=== PATIENT | female | born 1995 | race Hispanic/Latino ===

== ENCOUNTER 2022-06-11 16:02 | Emergency (ER) | payer SELFPAY ==
[2022-06-11 16:05] VITALS: BP 132/93; PULSE 106; RESP 30; TEMP 36.5; O2SAT 100; BMI 31.4
--- NOTE | 2022-06-11 16:13 | EKG12_ITS ---
Test Reason : SYNCOPE Blood Pressure : / mmHG Vent. Rate : 098 BPM Atrial Rate : 098 BPM P-R Int : 114 ms QRS Dur : 082 ms QT Int : 338 ms P-R-T Axes : 053 079 058 degrees QTc Int : 431 ms Normal sinus rhythm Normal ECG Confirmed by JACINTO ALVAREZ, STEVE ([id number]), television news video editor NANDO COTTO ([id number]) on 06/15/2022 9:32:39 AM Referred By: Confirmed By:HERI CASEY MD
--- NOTE | 2022-06-11 16:13 | EX.ED.DYSGE1 ---
HPI <SARAHI Messer - Last Filed: 06/11/22 18:17> History of Present Illness Chief Complaint: Syncope Narrative Narrative: 26-year-old female with history of sickle cell disease, presents to the emergency department after a syncopal episode while at work. Patient was standing at [employer], states that she felt dizzy like she might pass out, she told her friend who actually caught her. Patient did not strike the ground. Patient then was brought in by EMS. On arrival, patient was breathing 35-40 times a minute, patient was shaking and saying that she cannot feel her body. She denies any chest pain. Denies any fevers or chills. Denies any history of blood clots in her legs or lungs. Patient's last menstrual cycle was 1 week ago. Denies any hormonal use. PFSH <SARAHI Messer - Last Filed: 06/11/22 18:17> [facility] Medical History (Updated 06/11/22 @ 17:[address] Allen Cox MD) Sickle cell anemia Home Medications albuterol sulfate 90 mcg/actuation aerosol inhaler (Ventolin HFA) 1 puff inhalation Q4H PRN PRN Wheezing 03/04/14 [History Last Taken 1 Month Ago ~08/30/16] vits,calcium no.78-iron fumarate-folic acid 29 mg-1 mg tablet (Prenatabs FA) 1 tab PO DAILY 06/13/16 [History Last Taken 09/23/16 20:00 1 tab] ferrous gluconate 324 mg (37.5 mg iron) tablet 325 mg PO BIDCM ##60 10/01/16 [Rx Last Taken Unknown] ibuprofen 400 mg tablet 400 mg PO Q4H PRN PRN pain or cramping ##40 10/01/16 [Rx Last Taken Unknown] Allergy/AdvReac Type Severity Reaction Status Date / Time No Known Allergies Allergy Verified 06/11/22 16:09 Social History Smoking Status: Never smoker ROS <SARAHI Messer - Last Filed: 06/11/22 18:17> ROS ED ROS Narrative Constitutional: Negative for fever, chills, weight loss, weakness Eyes: Negative for vision loss, vision change, double vision ENT: Negative for any sore throat, ear pain, congestion Cardiovascular: Negative for any chest pain, tightness, palpitations Respiratory: Negative for any cough, sputum production, hemoptysis, dyspnea, dyspnea on exertion, orthopnea Gastrointestinal: Negative for any abdominal pain, nausea, vomiting, diarrhea, constipation, blood in stool, blood in vomit : Negative for any urinary frequency, dysuria, retention, blood in urine Muscle skeletal: Negative for any muscle joint pain, stiffness, myalgias, arthralgias, neck pain, back pain Neurological: Negative for any headache, numbness or tingling, dizziness. Positive for syncope Skin: Negative for any rashes, lumps, itching, abrasions, lacerations Psychiatric: Negative for any depression, stress, suicidal ideation, homicidal ideation. Positive for anxiety Hematologic: Negative for any easy bruising, excessive bruising, easy bleeding Allergies: Negative for any eczema, hives, rash EXAM <SARAHI Messer - Last Filed: 06/11/22 18:17> Physical Exam Narrative Exam Narrative: Vital signs reviewed. Patient is alert and orient x4, patient is tachypneic, hyperventilating, it was difficult to get her to slow her breathing down. When patient talks he is able speak in complete senses. HEET: Head normocephalic atraumatic, TMs clear bilaterally. Posterior pharynx is clear, dry mucous membranes. Nares clear bilaterally. Neck: Supple with no lymphadenopathy or tenderness. No signs of meningismus, negative jolt sign. Cardiac: Regular rate and rhythm no murmurs gallops or rubs, equal peripheral pulses bilaterally. Respiratory: Lungs clear to auscultation bilaterally. Tachypneic, hyperventilation no chest tenderness. Abdomen: Soft, nontender, nondistended. No abdominal bruit or pulsatile masses. No hepatosplenomegaly Extremities: No peripheral edema, no signs of gross trauma or deformity. Active full range of motion of all extremities. Neuro: Cranial nerves II through XII intact, no focal neurological deficits. NIH score 0 Skin: Clean dry and intact with no rash, purpura, petechiae, vesicles or pustules. Backs/flank: No CVA tenderness, no midline spinal tenderness, no deformity. Psych: Normal mood and affect. No SI, HI or acute psychosis. Const Vital Signs: 06/11/22 16:05 06/11/22 18:15 Temperature 97.7 F L Temperature Source Oral Pulse Rate 106 H Respiratory Rate 30 H Respiratory Pattern Tachypnea Blood Pressure 132/93 H Blood Pressure Mean 106 Pulse Ox 100 Oxygen Delivery Method Room Air <Dr. Allen Cox MD - Last Filed: 06/11/22 18:20> Physical Exam Const Vital Signs: 06/11/22 16:05 06/11/22 18:15 Temperature 97.7 F L Temperature Source Oral Pulse Rate 106 H Respiratory Rate 30 H Respiratory Pattern Tachypnea Blood Pressure 132/93 H Blood Pressure Mean 106 Pulse Ox 100 Oxygen Delivery Method Room Air MDM <SARAHI Messer - Last Filed: 06/11/22 18:17> [facility] Lab Data Attestation: I reviewed the patient's lab results. Labs: Laboratory Results - last 24 hr 06/11/22 06/11/22 16:20 16:20 WBC 6.8 RBC 4.46 Hgb 13.0 Hct 37.3 MCV 83.6 MCH 29.1 MCHC 34.9 RDW Std Deviation 37.6 RDW Coeff of Nancy 12.4 Plt Count 300 MPV 10.1 Immature Gran % (Auto) 0.300 Neut % (Auto) 61.9 Lymph % (Auto) 29.6 Wolfe % (Auto) 6.9 Eos % (Auto) 0.9 Baso % (Auto) 0.4 Absolute Neuts (auto) 4.2 Absolute Lymphs (auto) 2.02 Nucleated RBC % 0 Sodium 138 Potassium 3.5 Chloride 107 Carbon Dioxide 22.0 Anion Gap 9 BUN 8 Creatinine 0.85 Estim Creat Clear Calc 75.68 Est GFR (MDRD) Af Amer 103 Est GFR (MDRD) Non-Af 85 BUN/Creatinine Ratio 9.4 L Glucose 103 Calcium 9.9 EKG Normal sinus rhythm: Comments: Normal sinus rhythm, rate of 98 bpm MN interval 114 MS, QRS duration 82 ms, no acute ST elevation, no acute infarct noted Treatment and Re-Evaluation Narrative: Patient appears well, patient appears nontoxic, vital signs are stable. Patient presents to the emergency department for syncopal episode while standing at work. Patient arrives to the emergency department in a anxiety attack with hyperventilation. Patient did receive some basic laboratory values, they were grossly unremarkable, EKG was unremarkable. Patient was able to calm down, she was given 0.5 mg of IV Ativan. She was given IV fluids 1 L. On reassessment, the patient was much more calm, she was able to ambulate to the bathroom with no difficulty, patient would like to be discharged. At this time, believe the patient had a vasovagal syncope from standing at work, EKG shows no evidence of ischemia, patient appears nontoxic. I do believe that the patient was hyperventilating which caused her body to feel numb and increased her anxiety. Patient is stable for discharge instructed return for any worsening symptoms. <Dr. Allen Cox MD - Last Filed: 06/11/22 18:20> [facility] MDM Narrative Medical decision making narrative: I have personally performed a face to face assessment of the patient and have reviewed the BRENNAN Note. I performed a substantive portion of the visit including all aspects of the following. My oh findings include: History is remarkable for sickle cell. She was standing. She states she felt nauseous and vision became tunnel and then black. There was no mention of seizure disorder. She was no incontinence of urine or stool. Presently she complains of total body numbness. She appears anxious. She denies feeling anxious. Exam is HEENT exam is remarkable for positive's Chvostek sign. Patient also has a positive Trousseau sign. Heart is rapid and regular. Patient is tachypneic. Lungs are clear to auscultation. Patient has good palpable distal pulses. Neuro exam is nonfocal. Medical Decision Making patient is clinically hyperventilating. EKG was obtained which reveals no ischemic changes or changes to suggest WPW. Patient was treated with Ativan for her anxiety and nonrebreather because she is hyperventilating. Blood work was obtained to assess for electrolyte abnormality. Other additions or changes: Clinically patient had a syncopal spell most likely vasovagal with hyperventilation syndrome. Lab Data Attestation: I reviewed the patient's lab results. Lab results narrative: CBC is unremarkable. Basic metabolic panel is unremarkable. Labs: Laboratory Results - last 24 hr 06/11/22 06/11/22 16:20 16:20 WBC 6.8 RBC 4.46 Hgb 13.0 Hct 37.3 MCV 83.6 MCH 29.1 MCHC 34.9 RDW Std Deviation 37.6 RDW Coeff of Nancy 12.4 Plt Count 300 MPV 10.1 Immature Gran % (Auto) 0.300 Neut % (Auto) 61.9 Lymph % (Auto) 29.6 Wolfe % (Auto) 6.9 Eos % (Auto) 0.9 Baso % (Auto) 0.4 Absolute Neuts (auto) 4.2 Absolute Lymphs (auto) 2.02 Nucleated RBC % 0 Sodium 138 Potassium 3.5 Chloride 107 Carbon Dioxide 22.0 Anion Gap 9 BUN 8 Creatinine 0.85 Estim Creat Clear Calc 75.68 Est GFR (MDRD) Af Amer 103 Est GFR (MDRD) Non-Af 85 BUN/Creatinine Ratio 9.4 L Glucose 103 Calcium 9.9 Discharge Plan Triage Chief Complaint: Syncope ED Midlevel Provider: Edward Agosto ED Provider: Allen Cox Dx/Rx/DC Orders Clinical Impression: Syncope and collapse, Acute hyperventilation syndrome Instructions: Causes of Syncope, Dizziness Fainting Causes, ED Hyperventilation Syndrome Prescriptions: No Action albuterol sulfate [Ventolin HFA] 1 INHALER inhaler 1 puff inhalation Q4H PRN PRN (Reason: Wheezing) [id number] [Prenatabs FA] 1 TABLET tablet 1 tab PO DAILY ibuprofen 400 MG tablet 400 mg PO Q4H PRN PRN (Reason: pain or cramping) Qty: 40 1RF ferrous gluconate 325 MG tablet 325 mg PO BIDCM Qty: 60 0RF Primary Care Provider: Care Physician,No Primary Referrals: Care Physician,No Primary [Primary Care Provider] - Activity Restrictions/Additional Instructions: Maintain hydration, follow-up with your PCP Disposition Disposition: Home, Self Care
--- NOTE | 2022-06-11 16:14 | NURSING ---
NO OLD EKGS
[2022-06-11] MEDS: 0.9% Normal Saline 1,000 ML 1000 ML IV (16:22)
[2022-06-11 16:37] LABS: Absolute Lymphocyte Count 2.02 X10^3/uL (0.83-4.51); Absolute Neutrophil Count 4.2 X10^3/uL (2.0-7.7); Basophil# 0.03 X10^3/uL; Basophil% 0.4 % (0-1); Eosinophil# 0.06 X10^3/uL; Eosinophils% 0.9 % (0-5); Hematocrit 37.3 % (37-47); Lymphocyte # 2.02 X10^3/ul (0.83-4.51); Lymphocyte % 29.6 % (19-41); Mean Corp Hgb Conc 34.9 g/dL (32-36); Mean Corpuscular Hgb 29.1 pg (27.0-32.0); Mean Corpuscular Volume 83.6 fL (81-99); Mean Platelet Vol. 10.1 fl (6.2-12.0); Monocyte# 0.47 X10^3/uL; Monocyte% 6.9 % (0-10); NRBC Flagged by Analyzer 0 % (0-5); Neutrophil # 4.23 X10^3/uL (2.7-7.7); Neutrophil % 61.9 % (47-70); Platelet Count 300 K/mm3 (150-450); RBC Distribution Width CV 12.4 % (11.6-14.6); RBC Distribution Width SD 37.6 fl (35.1-43.9); Red Blood Count 4.46 M/mm3 (4.2-5.4); White Blood Count 6.8 K/mm3 (4.4-11.0)
[2022-06-11] MEDS: LORazepam 2 MG/ML Syringe 0.5 MG IV (16:39)
[2022-06-11 16:57] LABS: Anion Gap 9 (5-15); BUN 8 mg/dL (7-18); BUN/Creat Ratio 9.4 RATIO (10-20); Calcium,Total 9.9 mg/dL (8.5-10.1); Chloride 107 mmol/L (98-107); Creatinine, Serum 0.85 mg/dL (0.55-1.02); EST Glomerular Filtration Rate 85 mL/min (>60); Est Glom Filt Rate - Afr Amer 103 mL/min (>60); Estimated Creatinine Clearance 75.68 ml/min; Glucose 103 mg/dL (74-106); Potassium 3.5 mmol/L (3.5-5.1); Sodium Level 138 mmol/L (136-145)
[2022-06-11 18:29] VITALS: BP 117/81; PULSE 91
== END 2022-06-11 18:29 | disposition home or self-care (01) ==
PROVIDERS: Nurse Practitioner; Emergency Provider Emergency Medicine; Visit Provider Emergency Medicine
DX: R06.4 Hyperventilation (principal); D57.1 Sickle-cell disease without crisis; R55 Syncope and collapse; R06.82 Tachypnea, not elsewhere classified
CPT/HCPCS: 80048; 85025; 93005; 96361; 96374; 99283; J7030; A4216